=== PATIENT | male | born 1950 | race African-American/Black ===

== ENCOUNTER 2022-08-09 08:07 | Outpatient (CLI) | payer MEDICARE, BC ==
[2022-08-09 12:15] LABS: BASOPHILS # (AUTO) 0.1 K/uL (0.0-0.2); BASOPHILS % (AUTO) 0.7 % (0.0-2.0); EOSINOPHILS % (AUTO) 2.2 % (0.0-6.0); HEMATOCRIT 41 % (39-51); HEMOGLOBIN 13.4 g/dL (13.5-17.5); LYMPHOCYTES # (AUTO) 1.9 K/uL (0.8-4.8); LYMPHOCYTES % (AUTO) 26.8 % (20.0-44.0); MEAN CORPUSCULAR HGB CONC 32 g/dl (31.0-36.0); MEAN CORPUSCULAR VOLUME 87 fL (80-96); MONOCYTES # (AUTO) 0.8 K/uL (0.1-1.30); MONOCYTES % (AUTO) 11.5 % (2.0-12.0); NEUTROPHILS # (AUTO) 4.2 K/uL (1.8-8.9); NEUTROPHILS % (AUTO) 58.8 % (43.0-81.0); PLATELET COUNT (AUTO) 291 K/uL (150-450); RED BLOOD CELL COUNT(AUTO) 4.76 MIL/uL (4.5-6.0); WHITE BLOOD COUNT (AUTO) 7.2 K/uL (4.3-11.0)
[2022-08-09 12:46] LABS: BILIRUBIN,URINE NEGATIVE (NEGATIVE); COLOR,URINE YELLOW (YELLOW); LEUKOCYTE ESTERASE ,URINE NEGATIVE (NEGATIVE); NITRITE, URINE NEGATIVE (NEGATIVE); PH,URINE 5.5 (5.0-8.0); PROTEIN,URINE NEGATIVE (NEGATIVE); UGLUCOSE 2+ mg/dL (NEGATIVE); UROBILINOGEN,URINE 0.2 EU/dL (0.2)
[2022-08-09 13:03] LABS: BACTERIA,URINE None seen /HPF (None Seen); SQUAMOUS EPITHELIAL CELL,UR Rare /HPF (None Seen); WBC,URINE 0-2 /HPF (0-3)
[2022-08-09 13:35] LABS: CALCIUM, SERUM 8.9 mg/dL (8.5-10.1); CREATININE 1.1 mg/dL (0.6-1.3); POTASSIUM 3.5 mmol/L (3.5-5.1)
== END 2022-08-09 23:59 | disposition home or self-care (01) ==
LOC: LAB 08:07
PROVIDERS: ATTEND Dentist Oral and Maxillofacial Surgery
DX: Z01.818 Encounter for other preprocedural examination (principal); Z20.822 Contact with and (suspected) exposure to COVID-19
CPT/HCPCS: 71045; 85025; 80048; 85610; 85730; 81001; 36415; U0003; C9803

== ENCOUNTER 2022-08-13 10:16 | Inpatient (IN) | payer MEDICARE, BC ==
[~2022-08-13] VITALS: Ht 172.7 cm; Wt 113.4 kg
[2022-08-13] MEDS ORDERED: ISOS30TA86 PO (11:58)
[2022-08-13] MEDS ORDERED: EZET10TA16 PO (11:58)
[2022-08-13] MEDS ORDERED: ATOR40TA PO (11:58)
[2022-08-13] MEDS ORDERED: METO100T7 PO (11:58)
[2022-08-13] MEDS ORDERED: SEMA1PEN SQ (11:58)
[2022-08-13] MEDS ORDERED: DESO15CR28 TP (11:58)
[2022-08-13] MEDS ORDERED: HYDR25TA4 PO (11:58)
[2022-08-13] MEDS ORDERED: USTE90DI SQ (11:58)
[2022-08-13] MEDS ORDERED: ASPI-1169 PO (11:58)
[2022-08-13] MEDS ORDERED: MULT-1169 PO (11:58)
[2022-08-13] MEDS ORDERED: CLOP75TA15 PO (11:58)
[2022-08-13] MEDS ORDERED: GEMTESA PO (11:59)
[2022-08-13] MEDS ORDERED: TAMS-12 PO (11:59)
[2022-08-13] MEDS ORDERED: VANCOMYCIN 1 GM VIAL ONE (12:27)
[2022-08-13] MEDS ORDERED: DEXAMETHASONE SOD PHOSPHATE 10 MG/ML VIAL ONE (12:27)
[2022-08-13] MEDS ORDERED: LIDOCAINE 2%-EPI 1:100,000 30 ML VIAL ONE (12:27)
--- NOTE | 2022-08-13 15:00 | NUR ---
Admitted patient in stable condition S/P [facility] Breach, Lt mandible bone cyst. Vital signs taken: BP-117/65, HR-67, Temp-97.2, SPO2-99, RR-19. Started to assess the patient, patient however requested for sometime to rest and sleep. Patient asked for ice bag and ice chips instead. Patient was stable, pleasant, no pain nor distress at the time. Patient's son at the bedside. Dr. Adam Cuellar reordered repeat of CT without contrast specifically--CT Maxillofacial without contrast due to only CT maxilla was done. Both Dr Pinzon & charge nurse aware. Dr. Botello called and updated on patient's vital signs and initial assessment. Charge nurse aware. MILLED LUMBER GRADER Kimmy Knight was updated who came to see the patient. Charge nurse aware.
[2022-08-13] MEDS ORDERED: IV NS 0.9% 1,000 ML IV PRN (17:00)
[2022-08-13] MEDS ORDERED: ACETAMINOPHEN 325 MG TABLET PO PRN ×2 (17:00→19:30)
[2022-08-13] MEDS ORDERED: ATROPINE SULFATE 1 MG/10 ML DISP.SYRIN IV ONE (18:04)
[2022-08-13] MEDS ORDERED: MAG HYDROX/AL HYDROX/SIMETH 30 ML UDC PO PRN (19:30)
[2022-08-13] MEDS ORDERED: HYDROCODONE/APAP 10/325MG TABLET PO PRN (19:30)
[2022-08-13] MEDS ORDERED: ZOLPIDEM TARTRATE 5 MG TABLET PO PRN (19:30)
[2022-08-13] MEDS ORDERED: MAGNESIUM HYDROXIDE 30 ML UDC PO PRN (19:30)
[2022-08-13] MEDS ORDERED: ONDANSETRON HCL/PF 4 MG/2 ML VIAL IVP PRN (19:30)
[2022-08-13] MEDS ORDERED: Z GUARD REMEDY 4 OZ OINT TP PRN (19:30)
[2022-08-13 20:00] VITALS: BP 102/55
--- NOTE | 2022-08-13 20:00 | NUR ---
NURSERY LABORER OPENING NOTE RECEIVED PT AWAKE, RESTING IN BED. PT A/O X4, ABLE TO MAKE NEEDS KNOWN. ABLE TO AMBULATE TO RESTROOM WITHOUT ASSIST. NO RESPIRATORY DISTRESS, NO SOB NOTED. NO C/O PAIN AT THIS TIME. PT ON TELE MONITORING, WITH HR: 90, SINUS RHYTHM. IV ACCESS TO RIGHT HAND, #20G, WITH NS INFUSING AT 30 ML/HR, IV INTACT, AND PATENT. SAFETY MEASURES IN PLACE: BED LOCKED, IN LOW POSITION, SIDE RAILS UP X2, CALL LIGHT WITHIN REACH. WILL CONTINUE TO MONITOR PT.
--- NOTE | 2022-08-13 21:20 | NUR ---
BRICKLAYER APPRENTICE NOTE PT REPORTS PAIN TO MANDIBLE. NORCO ADMINISTERED FOR PAIN.
[2022-08-14] VITALS: BP 106/65
[2022-08-14] MEDS ORDERED: USTEKINUMAB 90 MG SQ SCH (01:00)
[2022-08-14] MEDS ORDERED: DEXTROSE 50%-WATER 50 ML DISP.SYRIN IV PRN (01:00)
[2022-08-14] MEDS ORDERED: Medication Not On Formulary EA (Semaglutide (Ozempic) 1 MG) SQ SCH (01:00)
[2022-08-14] MEDS ORDERED: DESONIDE 0.05% TP PRN (01:00)
[2022-08-14 04:00] VITALS: BP 102/68
[2022-08-14 06:08] LABS: BASOPHILS % (AUTO) 0.1 % (0.0-2.0); HEMATOCRIT 42 % (39-51); HEMOGLOBIN 13.8 g/dL (13.5-17.5); LYMPHOCYTES % (AUTO) 9.5 % (20.0-44.0); MEAN CORPUSCULAR HGB CONC 33 g/dl (31.0-36.0); MEAN CORPUSCULAR VOLUME 87 fL (80-96); MONOCYTES # (AUTO) 0.6 K/uL (0.1-1.30); MONOCYTES % (AUTO) 5.5 % (2.0-12.0); NEUTROPHILS # (AUTO) 9.3 K/uL (1.8-8.9); NEUTROPHILS % (AUTO) 84.9 % (43.0-81.0); PLATELET COUNT (AUTO) 317 K/uL (150-450); RED BLOOD CELL COUNT(AUTO) 4.85 MIL/uL (4.5-6.0); WHITE BLOOD COUNT (AUTO) 10.9 K/uL (4.3-11.0)
[2022-08-14 06:50] LABS: CALCIUM, SERUM 8.8 mg/dL (8.5-10.1); CREATININE 1.1 mg/dL (0.6-1.3); MAGNESIUM 2.1 mg/dL (1.8-2.4); PHOSPHORUS 3.5 mg/dL (2.5-4.9); POTASSIUM 3.6 mmol/L (3.5-5.1)
--- NOTE | 2022-08-14 06:55 | NUR ---
FUNDING SPECIALIST CLOSING NOTE LEFT PT AWAKE, RESTING IN BED. PT A/O X4, ABLE TO MAKE NEEDS KNOWN. ABLE TO AMBULATE TO RESTROOM WITHOUT ASSIST. NO RESPIRATORY DISTRESS, NO SOB NOTED. NO C/O PAIN AT THIS TIME. PT ON TELE MONITORING, SINUS RHYTHM. IV ACCESS TO RIGHT HAND, #20G, WITH NS INFUSING AT 30 ML/HR, IV INTACT, AND PATENT. SAFETY MEASURES IN PLACE: BED LOCKED, IN LOW POSITION, SIDE RAILS UP X2, CALL LIGHT WITHIN REACH. WILL ENDORSE PT TO AM SHIFT NURSE FOR [place].
[2022-08-14] MEDS: INSULIN REGULAR, HUMAN 100 UNIT/ML 3 ML VIAL SQ PRN ×2 (07:11→12:04)
[2022-08-14] MEDS: BLOOD SUGAR DIAGNOSTIC 1 EACH STRIP IN SCH ×2 (07:12→12:08)
--- NOTE | 2022-08-14 07:53 | NUR ---
RN OPENING NOTE RECEIVED PATIENT IN BED OBTUNDED, ABLE TO RESPONDS PHYSICAL STIMULI. RESPIRATORY EVEN AND UNLABORED ON OXYGEN AT 2Ls VIA NC. IN NO ACUTE RESPIRATORY DISTRESS OBSERVED. SKIN IS WARM TO TOUCH, KEEP CLEAN/DRY. KEPT ELEVATED HOB FOR ASPIRATION PRECAUTION AND ENSURE AIRWAY, ALSO LOWEST BED POSITIONED. BED ALARM IS ON AT ALL TIMES FOR SAFETY. CALL LIGHT WITHIN REACH, WILL CONTINUE TO MONITOR. Addendum: 08/14/22 at 0756 by KEVIN BENOIT RN ERROR
--- NOTE | 2022-08-14 07:56 | NUR ---
RN OPENING NOTE RECEIVED PATIENT IN BED, ABLE TO RESPONDS ALL PHYSICAL STIMULI. RESPIRATORY EVEN AND UNLABORED ON OXYGEN AT 2Ls VIA NC. IN NO ACUTE RESPIRATORY DISTRESS OBSERVED. SKIN IS WARM TO TOUCH, KEEP CLEAN/DRY. KEPT ELEVATED HOB FOR ASPIRATION PRECAUTION AND ENSURE AIRWAY, ALSO LOWEST BED POSITIONED. BED ALARM IS ON AT ALL TIMES FOR SAFETY. CALL LIGHT WITHIN REACH, WILL CONTINUE TO MONITOR.
[2022-08-14 08:00] VITALS: BP 100/56
[2022-08-14] MEDS ORDERED: TAMSULOSIN 0.4 MG CAP.SR.24H PO SCH (09:00)
[2022-08-14] MEDS ORDERED: EZETIMIBE 10 MG TABLET PO SCH (09:00)
[2022-08-14] MEDS ORDERED: CLOPIDOGREL BISULFATE 75 MG TABLET PO SCH (09:00)
[2022-08-14] MEDS ORDERED: MULTIPLE VIT (LYCOPENE/FA/MV,CA,IRON,MIN/LUT)1 TAB PO SCH (09:00)
[2022-08-14] MEDS ORDERED: ISOSORBIDE MONONITRATE (30MG) 30 MG TAB.SR.24H PO SCH (09:00)
[2022-08-14] MEDS ORDERED: HYDROCHLOROTHIAZIDE 25 MG TABLET PO SCH (09:00)
[2022-08-14] MEDS ORDERED: Medication Not On Formulary EA ([Gemtesa] 75 MG) PO SCH (09:00)
[2022-08-14] MEDS ORDERED: METOPROLOL SUCCINATE 50 MG TAB.SR.24H PO SCH (09:00)
[2022-08-14] MEDS ORDERED: ASPIRIN 81 MG TAB.CHEW PO SCH (09:00)
[2022-08-14] MEDS ORDERED: ATORVASTATIN 40 MG TABLET PO SCH (09:00)
[2022-08-14 13:00] VITALS: BP 101/54
--- NOTE | 2022-08-14 14:40 | NUR ---
PATIENT ORDERED D/C AND CLARIFIED WITH DR. FAY.
--- NOTE | 2022-08-14 15:10 | NUR ---
THE PATIENT D/C TO HOME AND GIVEN DISCHARGE INSTRUCTION INCLUDE F/U WITH DR. FAY IN 9 DAYS, PATIENT LEFT THE FACILITY WITH A WHEEL CHAIR ACCOMPANIED BY STAFF TO THE PRIVATE CAR. THE PATIENT IN STABLE CONDITION, DENIES POST OP PAIN OR DISCOMFORT.
== END 2022-08-14 15:20 | disposition home or self-care (01) | DRG 516 ==
LOC: DS 10:16 → MED 16:00 → TELE 16:12
PROVIDERS: ADMIT Internal Medicine; ATTEND Nurse Practitioner Acute Care
PROC: 09BR0ZZ Excision of Left Maxillary Sinus, Open Approach (ICD-10-PCS; principal; 2022-08-13)
PROC: 0NUR07Z Supplement Maxilla with Autologous Tissue Substitute, Open Approach (ICD-10-PCS; 2022-08-13)
PROC: 0NSV04Z Reposition Left Mandible with Internal Fixation Device, Open Approach (ICD-10-PCS; 2022-08-13)
DX: M84.5 Pathological fracture in neoplastic disease (principal); C41.1 Malignant neoplasm of mandible; K51.90 Ulcerative colitis, unspecified, without complications; S02.40DK Maxillary fracture, left side, subsequent encounter for fracture with nonunion; X58.XXXD Exposure to other specified factors, subsequent encounter; G47.33 Obstructive sleep apnea (adult) (pediatric); J32.0 Chronic maxillary sinusitis; M27.40 Unspecified cyst of jaw; R00.1 Bradycardia, unspecified; T41.205A Adverse effect of unspecified general anesthetics, initial encounter; Y92.238 Other place in hospital as the place of occurrence of the external cause; N40.0 Benign prostatic hyperplasia without lower urinary tract symptoms; Z95.5 Presence of coronary angioplasty implant and graft; Z87.891 Personal history of nicotine dependence; E66.9 Obesity, unspecified; Z68.38 Body mass index [BMI] 38.0-38.9, adult; Z71.3 Dietary counseling and surveillance; Z86.73 Personal history of transient ischemic attack (TIA), and cerebral infarction without residual deficits; I25.10 Atherosclerotic heart disease of native coronary artery without angina pectoris; E78.5 Hyperlipidemia, unspecified; E11.9 Type 2 diabetes mellitus without complications; I10 Essential (primary) hypertension; Z79.02 Long term (current) use of antithrombotics/antiplatelets; Z79.82 Long term (current) use of aspirin; Z79.899 Other long term (current) drug therapy
CPT/HCPCS: 36415; 70486-TC; 80048-TC; 80061-TC; 82962-TC; 83735-TC; 84100-TC; 85025-TC; 88305-TC; 88311-TC; A4217; A4223; C1713; G0378; J0461; J1100; J1815; J1885; J2704; J2765; J3370; J3490; J7030